=== PATIENT | female | born 1955 | race Caucasian/White ===

== ENCOUNTER → 2018-05-09 | Outpatient (CLI) | payer BC, OTHER ==
[~2018-05-09] MED LIST: ACIDOPHILUS1 EAC4 PO; AUGMENTIN 875-1 EACH PO; B-12500 MCG PO; ENOXAPARIN40 MG/0.1 SUBQ; HYDRALAZINE 5050 MG PO; IRON325 PO; LANCETS; LEVEMIR SUBQ; LOTENSIN20 MG PO; MIRALAX17 GM PO; NORVASC2.5 MG PO; NOVOLOG100 UNIT/1 SUBQ; PROTONIX 20 MG20 M1 PO; TYLENOL325 MG PO; ZOSYN 3/0.373.375 G3 IV; [UNRECOGNIZED DRUG - OTHER]
== END ==
LOC: HYPER 06:59
DX: L97.513 Non-pressure chronic ulcer of other part of right foot with necrosis of muscle (principal); I96 Gangrene, not elsewhere classified; I10 Essential (primary) hypertension; Z87.891 Personal history of nicotine dependence

== ENCOUNTER 2018-05-14 16:29 | Inpatient (IN) | payer BC, OTHER ==
[~2018-05-14] VITALS: Ht 175.3 cm; Wt 75.7 kg
--- NOTE | ~2018-05-14 | H ---
[facility] [place] [address] HISTORY AND PHYSICAL Name: FLOR VAUGHN Room #: 510-P ADM IN M.R.#: [id number] Admission: 05/14/18 Attend Phys: Eh Cruz MD Discharge: Date of : 55 Report #: [id number] THIS REPORT FOR: //name// CC: Eh Cruz [facility] unknown DATE OF SERVICE: 05/15/2018 HISTORY AND PHYSICAL/POSTADMISSION PHYSICIAN EVALUATION: HISTORY OF PRESENT ILLNESS: The patient is a 62-year-old white female with a history of right toe gangrene, right foot osteomyelitis, new onset diabetes mellitus, diabetic peripheral neuropathy. She was admitted and underwent a right foot transmetatarsal amputation 05/11/[address] Solitario. She was limited to nonweightbearing on the right lower extremity. She was noted to have significant functional mobility and ADL deficits and was admitted for acute in-hospital inpatient rehabilitation. PAST MEDICAL HISTORY: Includes hypertension, new onset diabetes mellitus and peripheral neuropathy. She is a past smoker. ALLERGIES: No known drug allergies. HABITS: Tobacco abuse, quit 15 years ago. Alcohol use only on special occasions. MEDICATIONS: Please see the full medication listing. This includes vitamins, herbals, and minerals and supplements. PAST SURGICAL HISTORY: Tonsillectomy. SOCIAL HISTORY: Lives in a house with her , two steps in. She did not utilize gait aids or used a cane. She noted she plans on going to her sister's house where there is one step. Her sister is there and is caring for the sister's who has some medical problems himself. REVIEW OF SYSTEMS: No current complaints of chest pain, shortness of breath, abdominal discomfort. She has some right lower extremity discomfort as expected. PHYSICAL EXAMINATION: GENERAL: Pleasant 62-year-old white female in no obvious distress. The patient is alert, pleasant, oriented. VITAL SIGNS: Last recorded temperature 99, pulse 105, respirations 20 and blood pressure 142/65. HEENT: Appeared to be benign. [address] [address] HISTORY AND PHYSICAL Name: FLOR VAUGHN Room #: [address] [place] [address] IN M.R.#: [id number] Admission: 05/14/18 Attend Phys: Eh Cruz MD Discharge: Date of : 55 Report #: [id number] NEUROLOGIC: Cranial nerves are grossly intact. Facies are symmetric. She has breath sounds that appear clear. CARDIOVASCULAR: Regular rate and rhythm. ABDOMEN: Bowel sounds positive, nontender. GENITOURINARY AND RECTAL: Deferred. NEUROLOGICAL: Functional range of motion of both upper extremities with strength grade 4- to 4/5. DTRs are trace to 1. Lower extremities, she has the right transmetatarsal amputation, which is dressed. No calf swelling. She can move the right leg proximally. Lower extremity is grade 4-/5. She has some slight decreased proprioception of the left large toe. No calf swelling. Strength of left lower extremity is a grade 4-/5. She is min assist with sit to stand. She is nonweightbearing on the right lower extremity. IMPRESSION: This is a 62-year-old white female with the following problem list: 1. Right foot osteomyelitis, status post right transmetatarsal amputation on 05/11/2018, nonweightbearing. 2. New onset diabetes mellitus. 3. Peripheral neuropathy. 4. Hypertension. 5. Protein-calorie malnutrition, moderate. PLAN: The patient is admitted for acute in-hospital inpatient rehabilitation. From a postadmission physician evaluation perspective, there are no relevant changes since the preadmission screening. Please see the above review of prior and current medical and functional conditions and comorbidities. Please see the patient's previous and current functional status. As far as risk of complication, she has the multiple medical comorbidities as noted above. Initial plan of care involves the interdisciplinary acute inpatient rehabilitation program with the goal of maximizing the patient's functional independence, so she can hopefully return back to her prior living situation. Measurable functional goals would be for the patient to become modified independent with transfers, mobility and ADLs, so she can return back to the home setting. Prognosis is reasonably good with estimated length of stay probably at least 10 days to 2 weeks. Potential barriers would include the patient's multiple medical comorbidities and decreased functional status. We will have the wound care physician's continue to follow while the patient is on the rehab polanco. Infectious Disease has also been notified regarding the patient's rehabilitation admission as well as the hospitalist service. <ELECTRONICALLY SIGNED> By: Eh Cruz MD 05/17/18 1116 [id number] [id number] Eh Cruz MD /nt
--- NOTE | ~2018-05-14 | HC ---
[facility] [place] [place] [address] CONSULTATION Name: FLOR VAUGHN Room #: 510-P [facility] IN M.R.#: [id number] Admission: 05/14/18 Attend Phys: Eh Cruz MD Discharge: 05/27/18 Date of : 55 Report #: [id number] THIS REPORT FOR: //name// CC: Eh Cruz MD [facility] unknown DATE OF SERVICE: 05/15/2018 PERSONAL PHYSICIAN: Unknown. CHIEF COMPLAINT: Right foot transmetatarsal amputation wound. HISTORY OF PRESENT ILLNESS: This is a 62-year-old white female who last week presented to our office with a wet gangrene to the right second and fifth toe. It was found on MRI that there was osteomyelitis involving the second, third, fourth and fifth metatarsals and the patient subsequently underwent a right transmetatarsal amputation. The patient has been nonweightbearing on that extremity since that time. The patient has been otherwise doing well and was moved to the acute rehab unit of the hospital for further aggressive occupational and physical therapy. We have been asked to continue to follow the wound while she is here. PAST MEDICAL HISTORY: New onset hypertension, new onset diabetes mellitus and peripheral neuropathy. CURRENT MEDICATIONS: Multiple. I reviewed the patient's medication list. DRUG ALLERGIES: None. SOCIAL HISTORY: The patient has a remote history of tobacco use, quitting 15 years ago. Drinks alcohol rarely. FAMILY HISTORY: Not pertinent to current medical condition. REVIEW OF SYSTEMS: CONSTITUTIONAL: The patient denies fevers or chills. NEUROLOGIC: The patient complains of mild generalized weakness, but no isolated weakness in arms or legs. EYES: No complaints. ENT: No complaints. CARDIAC: The patient denies chest pain, palpitations. Has mild lower extremity edema. RESPIRATORY: The patient denies shortness of breath, cough or wheezes. GASTROINTESTINAL: The patient denies nausea, vomiting or abdominal pain. The patient states she is eating a high-protein rich diet. [facility] [address] [place] [address] CONSULTATION Name: FLOR VAUGHN Room #: 510-P [facility] IN ..#: [id number] Admission: 05/14/18 Attend Phys: Eh Cruz MD Discharge: 05/27/18 Date of : 55 Report #: [id number] GENITOURINARY: The patient denies urgency or frequency. MUSCULOSKELETAL: No complaints. SKIN: There is surgical wound on the right foot consistent with transmetatarsal amputation. Dressing is clean, dry and intact. PHYSICAL EXAMINATION: VITAL SIGNS: Temperature 36.4, pulse 84, respirations 29, BP 154/80. GENERAL: This is alert and oriented x 3, very pleasant white female who is in absolutely no distress. The patient is currently getting ready to start physical therapy. HEENT: Normocephalic, atraumatic. Mucous membranes are moist. Pupils are round. Sclerae are white. NECK: Supple, nontender. LUNGS: Clear. HEART: Regular, without murmur. ABDOMEN: Soft, nontender. EXTREMITIES: The patient moves all extremities without difficulty. Right transmetatarsal amputation site is dressed with a fresh dressing, which is clean, dry and intact. The patient has no pain with palpation of the dressing. There is trace edema to the right lower extremity. There is trace edema to the left lower extremity. Left heel, foot and toes are all intact. NEUROLOGIC: Cranial nerves 2-12 grossly intact. Motor and sensory grossly intact. LABORATORY VALUES: White count 11.1, hemoglobin 8.7. IMPRESSION: 1. Wet gangrene with underlying osteomyelitis of right forefoot, now status post transmetatarsal amputation. Overall, doing well. 2. Newly diagnosed diabetes mellitus. 3. Newly diagnosed hypertension. 4. Protein-calorie malnutrition, moderate, with an albumin 2.9. 5. Generalized debility. PLAN: The patient will continue with Aquacel Ag over the surgical incisions, covered with Xeroform, Kerlix and Krishna for compression. This will be changed 3 times weekly. The patient will utilize physical and occupational therapy for strengthening. We will continue to maximize the patient's oral protein consumption for healing. We will continue all other current medications. <ELECTRONICALLY SIGNED> By: Raheel Mckeon MD 06/04/18 1017 [id number] Raheel Mckeon MD /nt
--- NOTE | ~2018-05-14 | PLAN ---
[facility] [place] [address] REHAB UNIT PLAN OF CARE Name: FLOR VAUGHN Room #: 510-P [facility] IN M.R.#: [id number] Admission: 05/14/18 Attend Phys: Eh Cruz MD Discharge: 05/27/18 Date of : 55 Report #: [id number] THIS REPORT FOR: //name// CC: Eh Cruz [facility] unknown DATE OF SERVICE: 05/17/2018 PROGRESS NOTE/OVERALL PLAN OF CARE SUBJECTIVE: The patient is seen back today in followup. She is in no distress. Last recorded temperature 98.4, pulse 72, respirations 15, blood pressure 159/82. Transfers are min assist with gait min assist 24 feet in the parallel bars. She is nonweightbearing on the right lower extremity. Lower body dressing is mod assist, upper body dressing is setup. ASSESSMENT: 1. Right foot osteomyelitis, status post right transmetatarsal amputation on 05/11/2018, nonweightbearing. 2. New onset diabetes mellitus. 3. Peripheral neuropathy. 4. Hypertension. 5. Protein-calorie malnutrition, moderate. PLAN: The overall plan of care is based on the preadmission screen, post-admission physician evaluation and information garnered from therapy assessments. 1. Estimated length of stay probably 10 days to 2 weeks. 2. Medical prognosis is reasonably good. 3. Anticipated interventions include the interdisciplinary acute inpatient rehabilitation program. 4. Anticipated functional outcomes would be for the patient to become modified independent with basic mobility issues at a walker/wheelchair level. Nonweightbearing on the right lower extremity. 5. Discharge destination would be staying temporarily with her sister. 6. Expected therapy by discipline includes PT and OT 1-1/2 hours per day each 5 days a week throughout the duration of the acute inpatient rehabilitation stay. <ELECTRONICALLY SIGNED> By: Eh Cruz MD 05/28/18 1455 [id number] [id number] Eh Cruz MD /nt
--- NOTE | ~2018-05-14 | HC ---
[facility] [place] [address] CONSULTATION Name: FLOR VAUGHN Room #: 510-P [facility] IN M.R.#: [id number] Admission: 05/14/18 Attend Phys: Eh Cruz MD Discharge: 05/27/18 Date of : 55 Report #: [id number] THIS REPORT FOR: //name// CC: Eh Cruz [facility] unknown DATE OF SERVICE: 05/18/2018 ATTENDING PHYSICIAN: Eh Cruz MD [employer] SPECIALIST: Duane Garcia, PhD CLINICAL PRESENTATION: The patient is a 62-year-old female admitted to the rehabilitation unit at [facility] for comprehensive inpatient rehabilitation program to improve functional mobility and activities of daily living and self-care secondary to deficits from a right foot osteomyelitis and is status post right transmetatarsal amputation on 05/11/2018. She has been nonweightbearing. Her diagnoses include a new onset diabetes mellitus, peripheral neuropathy, hypertension and protein-calorie malnutrition. A complete description of her medical condition and history can be found in her medical record. Neuropsychological consultation was requested to provide assistance in the assessment of cognitive and emotional status and to provide recommendations and services. Prior to this most recent medical event, she was living independently in her own home. She is with one child. Patient is a high school graduate and primarily a homemaker throughout her life. She does not report a history of treatment for mood or behavior disorder. TECHNIQUES UTILIZED: Clinical interview, review of medical records, staff consultation and behavioral observation, mini mental status exam 2 standard version and clock drawing. EXAMINATION FINDINGS: The patient was alert and cooperative with the assessment. She accurately described events surrounding her admission. There is no evidence of aphasia. Her thoughts are logical and goal oriented. There is no evidence of thought disorder. She does not report difficulty with sleep, appetite or energy level. Memory and word finding are described as within normal limits. She does not report depression. However, she does indicate some anxiety in regard to the impact of her condition on family members. She also reports the desire to improve her overall level of health management and maintenance of diet given her current medical condition. Her performance on the MMSE-2 brief version is within normal limits with a raw score 16 of 16. Performance on the MMSE-2 standard version is within normal limits with a raw score of 30 of 30. Clock drawing is within normal limits. [address] [address] CONSULTATION Name: FLOR VAUGHN Room #: 510-P [facility] IN M.R.#: [id number] Admission: 05/14/18 Attend Phys: Eh Cruz MD Discharge: 05/27/18 Date of : 55 Report #: [id number] IMPRESSION: In general, neurocognitive functioning is within normal limits and well maintained. There may be a mild increase in anxiety in regard to the implications of her condition and need to more carefully manage her health care in general. RECOMMENDATIONS: Continued psychological services as needed. She is coping well to the extent of using this as an opportunity to improve her overall health care and that of other family members. I will continue to follow as needed for psychological support. Thank you very much for allowing me to provide the consultation on this patient. <ELECTRONICALLY SIGNED> By: Duane Garcia, PhD 06/01/18 1407 1515 [id number] Duane Garcia, PhD /nt
[~2018-05-14 16:29] MED LIST changes: -ACIDOPHILUS1 EAC4 PO; -AUGMENTIN 875-1 EACH PO; -B-12500 MCG PO; -HYDRALAZINE 5050 MG PO; -IRON325 PO; -LANCETS; -MIRALAX17 GM PO; -NOVOLOG100 UNIT/1 SUBQ; -PROTONIX 20 MG20 M1 PO; -[UNRECOGNIZED DRUG - OTHER]
[2018-05-14 20:40] VITALS: BP 142/65
[2018-05-15 04:27] LABS: CREATININE 1.4 mg/dL (0.6-1.0); POTASSIUM 3.5 mmol/L (3.5-5.1)
[2018-05-15 04:50] LABS: HEMATOCRIT 26.9 % (37.0-47.0); HEMOGLOBIN 8.7 gm/dL (12.0-15.0); MCH 26.5 pg (26.0-34.0); MCHC 32.4 g/dL (28.0-37.0); MCV 81.6 fL (80.0-100.0); RBC 3.3 mil/uL (4.20-5.00); RDW 14.4 % (10.5-14.5); WBC 11.1 thou/uL (4.0-11.0)
[2018-05-15 07:45] VITALS: BP 154/80
[2018-05-15 19:41] VITALS: BP 181/87
[2018-05-16 08:39] VITALS: BP 160/78
[2018-05-16 19:48] VITALS: BP 159/82
[2018-05-17 08:30] VITALS: BP 145/58
[2018-05-17 20:25] VITALS: BP 151/67
[2018-05-18 07:15] VITALS: BP 140/75
[2018-05-19 07:25] VITALS: BP 158/68
[2018-05-19 21:19] VITALS: BP 164/85
[2018-05-20 06:33] LABS: ABSOLUTE NEUTROPHILS 6.4 thou/uL (1.4-8.2); BASOPHILS 1.1 % (0.0-2.0); EOSINOPHILS 1.7 % (0.0-3.0); HEMOGLOBIN 8.9 gm/dL (12.0-15.0); LYMPHOCYTES 18.3 % (24.0-44.0); MCH 27.4 pg (26.0-34.0); MCHC 34.3 g/dL (28.0-37.0); MCV 79.9 fL (80.0-100.0); PLATELET COUNT 364 thou/uL (150-400); POLYS 73.9 % (36.0-66.0); RBC 3.25 mil/uL (4.20-5.00); RDW 14.8 % (10.5-14.5); WBC 8.6 thou/uL (4.0-11.0)
[2018-05-20 06:41] LABS: CALCIUM 9.4 mg/dL (8.5-10.1); CREATININE 1.4 mg/dL (0.6-1.0); MAGNESIUM 2.3 mg/dL (1.8-2.4); POTASSIUM 3.8 mmol/L (3.5-5.1)
[2018-05-20 08:30] VITALS: BP 149/92
[2018-05-20 19:23] VITALS: BP 154/89
[2018-05-21 08:00] VITALS: BP 140/78
[2018-05-21 19:21] VITALS: BP 168/88
[2018-05-22 05:52] LABS: HEMATOCRIT 26.6 % (37.0-47.0); HEMOGLOBIN 8.7 gm/dL (12.0-15.0); MCH 26.5 pg (26.0-34.0); MCHC 32.8 g/dL (28.0-37.0); MCV 80.7 fL (80.0-100.0); RBC 3.3 mil/uL (4.20-5.00); RDW 15.6 % (10.5-14.5); WBC 9.4 thou/uL (4.0-11.0)
[2018-05-22 06:06] LABS: CALCIUM 9.6 mg/dL (8.5-10.1); CREATININE 1.7 mg/dL (0.6-1.0); POTASSIUM 4.3 mmol/L (3.5-5.1)
[2018-05-22 08:00] VITALS: BP 163/80
[2018-05-22 20:22] VITALS: BP 160/84
[2018-05-23 11:51] LABS: CALCIUM 9.5 mg/dL (8.5-10.1); CREATININE 1.5 mg/dL (0.6-1.0); POTASSIUM 4.2 mmol/L (3.5-5.1)
[2018-05-23 20:20] VITALS: BP 109/59; BP 158/78
[2018-05-24 06:28] LABS: CALCIUM 9.6 mg/dL (8.5-10.1); CREATININE 1.3 mg/dL (0.6-1.0); POTASSIUM 3.9 mmol/L (3.5-5.1)
[2018-05-24 17:33] VITALS: BP 161/74
[2018-05-24 20:17] VITALS: BP 151/81
[2018-05-25 07:00] VITALS: BP 161/81
[2018-05-25 11:00] VITALS: BP 172/85
[2018-05-25 16:36] VITALS: BP 167/95
[2018-05-25 19:19] VITALS: BP 153/70
[2018-05-26 07:30] VITALS: BP 172/67
[2018-05-26 15:04] VITALS: BP 151/71
[2018-05-26 19:00] VITALS: BP 155/66
[2018-05-27 05:48] LABS: ABSOLUTE NEUTROPHILS 5.8 thou/uL (1.4-8.2); BASOPHILS 1.8 % (0.0-2.0); EOSINOPHILS 3.1 % (0.0-3.0); HEMATOCRIT 27.8 % (37.0-47.0); HEMOGLOBIN 9.4 gm/dL (12.0-15.0); LYMPHOCYTES 19.6 % (24.0-44.0); MCH 27.2 pg (26.0-34.0); MCHC 33.7 g/dL (28.0-37.0); MCV 80.7 fL (80.0-100.0); MONOCYTES 3.7 % (1.0-8.0); PLATELET COUNT 383 thou/uL (150-400); POLYS 71.8 % (36.0-66.0); RBC 3.44 mil/uL (4.20-5.00); RDW 15.9 % (10.5-14.5); WBC 8.1 thou/uL (4.0-11.0)
[2018-05-27 05:59] LABS: CALCIUM 9.5 mg/dL (8.5-10.1); CREATININE 1.4 mg/dL (0.6-1.0); MAGNESIUM 1.9 mg/dL (1.8-2.4); POTASSIUM 4.2 mmol/L (3.5-5.1)
[2018-05-27 07:05] VITALS: BP 136/80
[2018-05-27] MEDS ORDERED: LEVEMIR SUBQ (09:55)
[2018-05-27] MEDS ORDERED: [UNRECOGNIZED DRUG - OTHER] (09:55)
[2018-05-27] MEDS ORDERED: NORVASC2.5 MG PO (09:55)
[2018-05-27] MEDS ORDERED: LANCETS (09:55)
[2018-05-27] MEDS ORDERED: ACIDOPHILUS1 EAC4 PO (09:55)
[2018-05-27] MEDS ORDERED: IRON325 PO (09:55)
[2018-05-27] MEDS ORDERED: PROTONIX 20 MG20 M1 PO (09:55)
[2018-05-27] MEDS ORDERED: HYDRALAZINE 5050 MG PO (09:55)
[2018-05-27] MEDS ORDERED: MIRALAX17 GM PO (09:55)
[2018-05-27] MEDS ORDERED: NOVOLOG100 UNIT/1 SUBQ (09:55)
[2018-05-27] MEDS ORDERED: B-12500 MCG PO (09:55)
[2018-05-27] MEDS ORDERED: AUGMENTIN 875-1 EACH PO (11:24)
[2018-05-27 12:08] VITALS: BP 161/74
== END 2018-05-27 15:53 | disposition home health service (06) | DRG 300 ==
LOC: ENTRNSPT 05-27 15:23 → EDTRNSPTSTS 05-27 15:32 → CMPTRNSPT 05-27 15:50
PROVIDERS: Internal Medicine Infectious Disease; Nurse Practitioner; Nurse Practitioner Family; Physical Medicine & Rehabilitation
DX: E11.52 Type 2 diabetes mellitus with diabetic peripheral angiopathy with gangrene (principal); E44.0 Moderate protein-calorie malnutrition; M86.8X7 Other osteomyelitis, ankle and foot; L03.115 Cellulitis of right lower limb; N17.9 Acute kidney failure, unspecified; E11.69 Type 2 diabetes mellitus with other specified complication; I10 Essential (primary) hypertension; E11.42 Type 2 diabetes mellitus with diabetic polyneuropathy; R53.81 Other malaise; D64.9 Anemia, unspecified; E11.65 Type 2 diabetes mellitus with hyperglycemia; Z87.891 Personal history of nicotine dependence; Z68.24 Body mass index [BMI] 24.0-24.9, adult; Z79.4 Long term (current) use of insulin
CPT/HCPCS: 10112

== ENCOUNTER → 2018-06-05 | Outpatient (CLI) | payer BC, OTHER ==
[~2018-06-05] MED LIST changes: +ACIDOPHILUS1 EAC4 PO; +AUGMENTIN 875-1 EACH PO; +B-12500 MCG PO; +HYDRALAZINE 5050 MG PO; +IRON325 PO; +LANCETS; +MIRALAX17 GM PO; +NOVOLOG100 UNIT/1 SUBQ; +PROTONIX 20 MG20 M1 PO; +[UNRECOGNIZED DRUG - OTHER]
[2018-06-05 10:53] VITALS: BP 144/86
== END ==
LOC: SEN 09:04
DX: Z09 Encounter for follow-up examination after completed treatment for conditions other than malignant neoplasm (principal); E11.9 Type 2 diabetes mellitus without complications; I10 Essential (primary) hypertension; Z89.421 Acquired absence of other right toe(s)

== ENCOUNTER → 2018-06-06 | Outpatient (CLI) | payer BC, OTHER | LOC: HYPER 06-04 08:40 | DX: T87.89 Other complications of amputation stump (principal); L97.513 Non-pressure chronic ulcer of other part of right foot with necrosis of muscle; I73.9 Peripheral vascular disease, unspecified; M96.840 Postprocedural hematoma of a musculoskeletal structure following a musculoskeletal system procedure; I10 Essential (primary) hypertension; Z87.891 Personal history of nicotine dependence; Y83.5 Amputation of limb(s) as the cause of abnormal reaction of the patient, or of later complication, without mention of misadventure at the time of the procedure ==

== ENCOUNTER → 2018-06-20 | Outpatient (CLI) | payer BC, OTHER | LOC: HYPER 06:27 | DX: T87.89 Other complications of amputation stump (principal); L97.513 Non-pressure chronic ulcer of other part of right foot with necrosis of muscle; I73.9 Peripheral vascular disease, unspecified; I10 Essential (primary) hypertension; Z87.891 Personal history of nicotine dependence; Y83.5 Amputation of limb(s) as the cause of abnormal reaction of the patient, or of later complication, without mention of misadventure at the time of the procedure ==

== ENCOUNTER → 2018-07-04 | Outpatient (CLI) | payer BC, OTHER | LOC: HYPER 06:54 | DX: T87.89 Other complications of amputation stump (principal); L97.513 Non-pressure chronic ulcer of other part of right foot with necrosis of muscle; I73.9 Peripheral vascular disease, unspecified; I10 Essential (primary) hypertension; M96.840 Postprocedural hematoma of a musculoskeletal structure following a musculoskeletal system procedure; Z87.891 Personal history of nicotine dependence; Y83.5 Amputation of limb(s) as the cause of abnormal reaction of the patient, or of later complication, without mention of misadventure at the time of the procedure ==

== ENCOUNTER → 2018-08-05 | Outpatient (CLI) | payer BC, OTHER | LOC: HYPER 07:13 | DX: T87.89 Other complications of amputation stump (principal); L97.513 Non-pressure chronic ulcer of other part of right foot with necrosis of muscle; I73.9 Peripheral vascular disease, unspecified; I10 Essential (primary) hypertension; M96.840 Postprocedural hematoma of a musculoskeletal structure following a musculoskeletal system procedure; Z87.891 Personal history of nicotine dependence; Y83.5 Amputation of limb(s) as the cause of abnormal reaction of the patient, or of later complication, without mention of misadventure at the time of the procedure ==

== ENCOUNTER → 2018-12-12 | Outpatient (CLI) | payer BC, OTHER | LOC: HYPER 06:40 | DX: R21 Rash and other nonspecific skin eruption (principal); E11.51 Type 2 diabetes mellitus with diabetic peripheral angiopathy without gangrene; I10 Essential (primary) hypertension; Z87.891 Personal history of nicotine dependence ==

== ENCOUNTER 2019-01-24 10:54 | Inpatient (IN) | payer BC, OTHER ==
[~2019-01-24] VITALS: Ht 175.3 cm; Wt 64.4 kg
--- NOTE | ~2019-01-24 | HC ---
[facility] [place] [address] CONSULTATION Name: FLOR VAUGHN Room #: 352-P [facility] IN M.R.#: [id number] Admission: 01/24/19 ������������������ Attend Phys: Saud Monterroso Discharge: ������������������ Date of : 55 Report #: [id number] THIS REPORT FOR: //name// CC: Tony Monterroso DATE OF SERVICE: 01/28/2019 HISTORY OF PRESENT ILLNESS: The patient is a 63-year-old white female who was admitted with worsening weakness, urologic issues with urinary retention and inability to void. She was having difficulty trying to straight cath herself. She was admitted with acute renal insufficiency superimposed on chronic kidney disease, was noted to have obstructive uropathy with Leach catheter placed. She was also diagnosed with metabolic acidosis and metabolic encephalopathy along with gram-negative angeline sepsis. She does have a stage 3 sacral pressure ulcer with wound care involved as well as a deep tissue injury, left posterior heel, although she is allowed weightbearing as tolerated on that left heel as it is not over the weightbearing surface per se. She is being followed by Nephrology with her acute renal insufficiency superimposed on chronic kidney disease. She has cognitive issues and is severely debilitated and is being seen in rehabilitation medicine consultation. PAST MEDICAL HISTORY: Includes osteomyelitis, right foot with prior transmetatarsal amputation. She has a history of hypertension MEDICATIONS: Please see the full medication listing. SOCIAL HISTORY: She has been staying with her sister, 2 steps in. She uses a walker/wheelchair. She notes there are 8 steps total, 4+ another 4 steps. Her is in the area, but he has more steps in his house and so she has been staying with the sister. REVIEW OF SYSTEMS: No current complaints of chest pain, shortness of breath, or abdominal discomfort. PHYSICAL EXAMINATION: GENERAL: This is a 63-year-old white female in no obvious distress. The patient is alert, pleasant. VITAL SIGNS: Last recorded temperature is 98.4, pulse is 84, respirations 17, blood pressure is 139/58. HEENT: Appeared to be benign. NEUROLOGIC: Cranial nerves grossly intact. Facies are symmetric. She has functional range of motion of the upper extremity. Strength is grade 4-/5. DTRs are trace to 1. She does have some latency to her responses, needs cues, but can stay on topic. I did not examine the pressure ulcer on her sacrum. I did examine the deep tissue injury, which is dark bruise, left posterior heel. [facility] [address] [place] [address] CONSULTATION Name: FLOR VAUGHN Room #: 352-P [facility] IN ..#: [id number] Admission: 01/24/19 ������������������ Attend Phys: Saud Monterroso Discharge: ������������������ Date of : 55 Report #: [id number] It is not directly over the weightbearing surface. She has the old right transmetatarsal amputation. Lower extremity strength is probably a grade 3+/5. She does have bilateral heel protector boots on. She is mod assist with sit to stand and per report is allowed weightbearing as tolerated on that left heel. ASSESSMENT: The patient is a 63-year-old white female with the following problem list: 1. Metabolic encephalopathy. 2. Metabolic acidosis. 3. Gram-negative angeline sepsis. 4. Acute renal insufficiency superimposed on chronic kidney disease. 5. Obstructive uropathy warranting Leach catheter placement. 6. Stage 3 sacral pressure ulcer. 7. Left heel deep tissue injury. 8. Hypertension. 9. Diabetes mellitus. 10. Peripheral neuropathy. PLAN: Insurance will be checked regarding an acute in-hospital inpatient rehabilitation stay. The patient has multiple medical comorbidities warranting the involvement of multiple technical sales consultant physicians and would appear to be best served by having her management to continue on the rehab polanco with the multiple technical sales consultant physicians can continue to follow, so that we can try to improve her overall function and get her back home. Wound care is involved as well as Nephrology and Internal Medicine. She does appear motivated to try to improve her overall functional independence. Thank you for asking us to assist in this patient's care. ��������������������������������������������� ���������������������������������������� By: ��������������������������������������������� 1525 0510 Eh Cruz MD /DERRICK
[2019-01-24 10:55] VITALS: BP 154/125
[2019-01-24 11:46] LABS: HEMATOCRIT 24.8 % (37.0-47.0); HEMOGLOBIN 8.6 gm/dL (12.0-15.0); MCH 29.5 pg (26.0-34.0); MCHC 34.5 g/dL (28.0-37.0); MCV 85.5 fL (80.0-100.0); PLATELET COUNT 120 thou/uL (150-400); WBC 25.3 thou/uL (4.0-11.0)
[2019-01-24 12:07] LABS: ALBUMIN 1.9 g/dL (3.4-5.0); ANION GAP 19 mmol/L (7-16); BUN 149 mg/dL (7-18); CALCIUM 9.6 mg/dL (8.5-10.1); CHLORIDE 93 mmol/L (98-107); CREATININE 3.8 mg/dL (0.6-1.0); GLUCOSE 246 mg/dL (74-106); POTASSIUM 3.1 mmol/L (3.5-5.1); SGOT 41 U/L (15-37); SGPT 93 U/L (30-65); SODIUM 123 mmol/L (136-145); TOTAL BILIRUBIN 0.7 mg/dL (<0.1-1.0); TOTAL PROTEIN 6.3 g/dL (6.4-8.2); TROPONIN-I <0.06 ng/mL (<0.06)
[2019-01-24 12:15] LABS: CO2 11 mmol/L (21-32)
[2019-01-24 13:06] LABS: ANISOCYTOSIS SLIGHT; POIKILOCYTOSIS SLIGHT
[2019-01-24 13:07] LABS: BURR CELLS FEW; LARGE PLATELETS OCCASIONAL; TOXIC GRANULATION SLIGHT
[2019-01-24 13:21] LABS: URINE BILIRUBIN NEGATIVE (Negative); URINE BLOOD TRACE (Negative); URINE CLARITY CLEAR; URINE COLOR YELLOW; URINE GLUCOSE-RANDOM* NEGATIVE (Negative); URINE KETONES NEGATIVE (Negative); URINE NITRITE-REFLEX NEGATIVE (Negative); URINE PROTEIN (DIPSTICK) 1+ (Negative); URINE SPECIFIC GRAVITY <= 1.005 (1.005-1.035); URINE UROBILINOGEN 0.2 E.U./dl (0.2-1.0)
[2019-01-24 13:27] LABS: URINE LEUKOCYTES-REFLEX 1+ (Negative)
[2019-01-24 13:36] LABS: SQUAMOUS 0-3 Few /LPF (0-3); URINE RBC 0-2 Rare /HPF (0-2); URINE WBC-REFLEX 6-15 Few /HPF (0-5)
[2019-01-24 13:37] LABS: CASTS None Seen /LPF (None Seen); CRYSTALS None Seen /LPF (None Seen)
[2019-01-24 13:42] LABS: BE(vivo) -17.8 mmol/L (-2 to +3); PCO2 VENOUS 24.9 mmHg (41.0-51.0); PO2 VENOUS 32.3 mmHg (35.0-45.0)
[2019-01-24 14:44] VITALS: BP 100/66
[2019-01-24 14:58] VITALS: BP 101/56
[2019-01-24 15:29] VITALS: BP 120/86
--- NOTE | 2019-01-24 15:57 | EKG ---
[address] [address] ELECTROCARDIOGRAM REPORT Name: FLOR VAUGHN Room #: 352-P ADM IN M.R.#: [id number] ������������������ Admission: 01/24/19 ������������������ Attend Phys: Micheal Fountain MD Discharge: ������������������ Date of : 55 Report #: [id number] ����������������������������������������������������������������� [id number] THIS REPORT FOR: //name// [facility] ED Test Date: 2019-01-24 Test Time: 11:18:31 Pat Name: FLOR VAUGHN Department: Room: [facility] Gender: F Daycare Provider: FLAVIO : 1955 Requested By: Rosangela Hawkins Order Number: [id number] MD: Tray Shirley Measurements Intervals [place] Rate: 91 P: 71 MN: 188 QRS: 62 QRSD: 95 T: 56 QT: 370 QTc: 456 Interpretive Statements Sinus rhythm Atrial premature complex Probable left atrial enlargement Compared to ECG 05/09/2018 13:39:26 Atrial premature complex(es) now present Electronically Signed On 01-24-2019 15:57:20 CDT by Tray Shirley [email or web address] ��������������������������������������������� <ELECTRONICALLY SIGNED> ���������������������������������������� By: Tray Shirley MD ��������������������������������������������� 01/24/19 1557 17 Tray Shirley MD /BARBER
--- NOTE | 2019-01-24 18:50 | NUR ---
[age] YEAR OLD FEMALE ADMITTED TO WEST ROOM 352 UNDER THE CARE OF DR. FINN. PT WAS BROUGHT INTO THE ER PER SON AFTER PCP CALLED PT TO COME TO ER DUE TO ABNORMAL LABS. PT ALERT AND ORIENTED TIMES TWO. VSS, 100%RA, SR ON TELE. IVF INFUSING PER ORDER. PT DENEIS PAIN/SOA. PT TOLERATES MEDS AND MEALS. WOUND ON COCCYX DRESSING AND ALSO SEEN BY WOUND CARE TEAM. PT SON AT BEDSIDE. PT SIGNED PAPER WORK ABOUT MT ON ADMISSION.
[2019-01-24 19:36] VITALS: BP 101/57
--- NOTE | 2019-01-25 00:53 | NUR ---
RESULTS FROM BLOOD CULTURES RECEIVED. POSITIVE FOR GRAM POSITIVE RODS, FOLLOWED PROTOCOL AND CALLED CERTIFIED JUVENILE PROBATION OFFICER INFORM. TOLD TO FOLLOW POC.
[2019-01-25 04:40] VITALS: BP 106/63
[2019-01-25 05:35] LABS: HEMATOCRIT 20.4 % (37.0-47.0); MCH 29.3 pg (26.0-34.0); MCHC 34.1 g/dL (28.0-37.0); MCV 85.7 fL (80.0-100.0); PLATELET COUNT 116 thou/uL (150-400); RBC 2.38 mil/uL (4.20-5.00); RDW 13.9 % (10.5-14.5); WBC 26.9 thou/uL (4.0-11.0)
[2019-01-25 05:52] LABS: ALBUMIN 1.4 g/dL (3.4-5.0); CALCIUM 8.8 mg/dL (8.5-10.1); CREATININE 3.8 mg/dL (0.6-1.0); MAGNESIUM 1.6 mg/dL (1.8-2.4); PHOSPHORUS 2.8 mg/dL (2.5-4.9)
[2019-01-25 05:54] LABS: POTASSIUM 4.9 mmol/L (3.5-5.1)
[2019-01-25 08:11] VITALS: BP 108/65
[2019-01-25 08:12] LABS: ABSOLUTE NEUTROPHILS 26.6 thou/uL (1.4-8.2)
[2019-01-25 08:13] LABS: BURR CELLS 3+
[2019-01-25 11:01] VITALS: BP 103/58
[2019-01-25 16:04] VITALS: BP 120/70
--- NOTE | 2019-01-25 18:29 | NUR ---
ASSUMED CARE @ 0700 01/25/19, PT ASSESSMENTS AND VS COMPLETE PER CC TELE ORDERS. PT ALERT AND ORIENTED X 3, DISORIENTED TO SITUATION. PT ABLE TO FOLLOW COMMANDS BUT HAS EPISODES OF CONFUSION. PT ON RA, NO SIGNS OF SOA. PT SR ON THE MONITOR. PT ON A DIET, ACHS ACCUCHECKS AND SSI IN PLACE AT THIS TIME, PT HAS TWO BM EPISODES, PT WAS ABLE TO EAT MEALS APPROPRIATELY. ARGUETA IN PLACE, GOP NOTED PER PT'S SIZE. DR ZEPEDA HERE DURING SHIFT TO SEE, NEW ORDERS RECIEVED. PT AND OT HERE TO SEE DURING THE SHIFT. PLAN OF CARE- CONT TO MONITOR.
[2019-01-25 19:30] VITALS: BP 133/75
[2019-01-26 03:35] VITALS: BP 129/70
[2019-01-26 05:41] LABS: WBC 21.5 thou/uL (4.0-11.0)
--- NOTE | 2019-01-26 05:41 | NUR ---
[facility] LAB CAME BACK NEGATIVE AND REMOVED PT FROM ISOLATION. FOLLOWING POC WITH IVF BICARB. PT WAS Q2 TURNED AND HAS LOW LOSS AIR PUMP INSTALLED FOR LOW PATRIC SCORE. PT IS A LITTLE MORE ALERT, WITH BOUTS OF CONFUSION WHEN ASKING PINPOINTED QUESTIONS ABOUT WHERE HER SON WORKS, AND SUCH. HOURLY ROUNDING.
[2019-01-26 05:45] LABS: HEMOGLOBIN 6.8 gm/dL (12.0-15.0); MCH 29.4 pg (26.0-34.0); MCHC 34.4 g/dL (28.0-37.0); MCV 85.3 fL (80.0-100.0); RBC 2.31 mil/uL (4.20-5.00); RDW 14.4 % (10.5-14.5)
[2019-01-26 05:51] LABS: HEMATOCRIT 19.7 % (37.0-47.0)
[2019-01-26 06:08] LABS: ALBUMIN 1.3 g/dL (3.4-5.0); CALCIUM 8.4 mg/dL (8.5-10.1); PHOSPHORUS 2.2 mg/dL (2.5-4.9); POTASSIUM 5.4 mmol/L (3.5-5.1)
[2019-01-26 07:16] VITALS: BP 128/70
[2019-01-26 11:44] VITALS: BP 143/76
--- NOTE | 2019-01-26 15:20 | NUR ---
ASSUMED CARE OF PT AT 0700. PT HAS BEEN AWAKE AND ALERT. PT IS A&Ox4 WITH SOME MILD CONFUSION AND FORGETFULNESS. PT IS INCONTINENT OF BOWEL, HAS HAD MULTIPLE BM'S TODAY. PROVIDED WITH Q2H TURNS FOR COMFORT AND PRESSURE RELIEF. PT DENIES PAIN AND SAYS SHE IS FEELING BETTER. BG HAS BEEN ELEVATED UP INTO 300s, TREATING PER EMAR. ENCOURAGING INTAKE OF PROTEIN RICH FOODS. PT IS MAKING SLOW PROGRESS TOWARD POC GOALS. WILL CONTINUE TO MONITOR AND ASSESS.
[2019-01-26 15:59] VITALS: BP 152/87
[2019-01-26 19:20] VITALS: BP 141/76
[2019-01-27] VITALS (8 sets, daily range): BP systolic 125–160; BP diastolic 69–82
--- NOTE | 2019-01-27 04:23 | NUR ---
Patient making slow progress towards outcome goals. Incontinent of soft stools, hemorrhoids inflammed, some relief after preparation H started. Vital signs and rhythm stable. Good urine output.
[2019-01-27 05:43] LABS: MCH 28.9 pg (26.0-34.0); MCHC 34.4 g/dL (28.0-37.0); MCV 84.1 fL (80.0-100.0); RBC 2.12 mil/uL (4.20-5.00); RDW 14.1 % (10.5-14.5); WBC 15.9 thou/uL (4.0-11.0)
[2019-01-27 05:55] LABS: HEMATOCRIT 17.9 % (37.0-47.0); HEMOGLOBIN 6.2 gm/dL (12.0-15.0)
[2019-01-27 05:57] LABS: ALBUMIN 1.1 g/dL (3.4-5.0); CALCIUM 7.6 mg/dL (8.5-10.1); PHOSPHORUS 2.6 mg/dL (2.5-4.9); POTASSIUM 5.1 mmol/L (3.5-5.1)
--- NOTE | 2019-01-27 06:31 | NUR ---
Hemoglobin 6.2, no active signs of bleeding. Orders received from Carlos Moreland NP to transfuse 1 unit PRBC.
[2019-01-27 10:16] LABS: % SATURATION 24 % (20-39); IRON 25 ug/dL (50-170); TIBC 104 ug/dL (250-450)
--- NOTE | 2019-01-27 11:38 | NUR ---
Assumed care of patient at 0700. Vitals have been stable. Patient is alert and oriented x3-4 with periods of forgetfulness. Denies pain, nausea, SOA. Still with multiple loose BMs throughout day, but smaller in volume. Frequent turning and barrier cream applied to sacrum; redness seems to be improving compared to previous day. Patient reports feels less sensitive to sacrum, as well. Leach to DD with adequate output. Bilateral SCDs in place; profo boots to offload heels. Wound care completed per orders. One unit of blood ordered for low hemoglobin. Currently transfusing with no issues noted. Visitors at bedside. Fall precautions in place. Slowly progressing towards POC. Will continue to monitor.
--- NOTE | 2019-01-27 16:22 | HC ---
[facility] [place] [address] CONSULTATION Name: FLOR VAUGHN Room #: 352-P ADM IN .R.#: [id number] Admission: 01/24/19 ������������������ Attend Phys: Micheal Fountain MD Discharge: ������������������ Date of : 55 Report #: [id number] THIS REPORT FOR: //name// CC: Tony Fountain DATE OF SERVICE: 01/24/2019 CHIEF COMPLAINT: Sacral ulcer and left heel pressure injury. HISTORY OF PRESENT ILLNESS: This is a 63-year-old female patient whom we have seen in the past who was admitted to the hospital with abnormal labs and generalized weakness. The patient was noted to have a sacral pressure ulcer and deep tissue injury to her heel. I have been asked to see her with regard to wound care. PAST MEDICAL HISTORY: Positive for history of heart murmur, hypertension, and previous osteomyelitis of the right foot. SOCIAL HISTORY: The patient is a previous smoker and occasionally drinks alcohol. FAMILY HISTORY: Positive for coronary artery disease in her father and cerebrovascular accident in her brother. MEDICATIONS: Include Tylenol, iron, hydralazine, acidophilus, MiraLax, NovoLog, vitamin B12, Norvasc and Augmentin. ALLERGIES: None. REVIEW OF SYSTEMS: Very limited due to the fact that the patient has limited ability to communicate at this time. She does complain of some pain in her sacral region and complains of generalized weakness. Other systems in a 14-point review of systems other than that covered in history of present illness are negative. PHYSICAL EXAMINATION: VITAL SIGNS: At this time include temperature 36.0, pulse 86, respiratory rate 18, blood pressure 120/86. GENERAL: This is a somewhat chronically ill-appearing female patient who appears to be in minimal discomfort. HEENT: Head normocephalic. Nose and throat are clear. NECK: Supple. LUNGS: Clear. HEART: Regular rhythm. [facility] [address] [place] [address] CONSULTATION Name: FLOR VAUGHN Room #: 352-P [facility] IN [facility].#: [id number] Admission: 01/24/19 ������������������ Attend Phys: Micheal Fountain MD Discharge: ������������������ Date of : 55 Report #: [id number] ABDOMEN: Soft and nontender. Sacral region demonstrates a Stage 3 pressure ulceration of the sacrum. It is relatively small, clean, and granulating. No exposed deep structures. LOWER EXTREMITIES: Demonstrate deep tissue injury that appears significant to the posterior portion of the left heel: Skin remains intact, but it is bruised. This may progress to further tissue necrosis. LABORATORY DATA: Sodium is 123, potassium 3.1, chloride 93, BUN 149, creatinine 3.8, and glucose is 246. Lactic acid is 0.9. Alkaline phosphatase is 398. White blood cell count 25.2 with a hemoglobin of 8.6, and hematocrit of 24.8. CLINICAL IMPRESSION: 1. Stage 3 sacral pressure ulceration. 2. Deep tissue injury to the left heel. I am concerned for progression to further tissue loss. 3. Metabolic acidosis and encephalopathy. 4. Acute on chronic renal failure. 5. Diabetes, uncontrolled with hyperglycemia. 6. Hypertension. 7. Moderate protein-calorie malnutrition. RECOMMENDATIONS: At this point in time, we will recommend zinc oxide cream and bordered foam to her sacrum. Recommend Betadine paint to her left heel. We will place her on a low air loss surface. She will need turning and repositioning every 2 hours. Nutrition assessment and replenishment will be essential to wound healing and management of the glycemic control. We will continue with her current medications. I appreciate being asked to see her in consultation. ��������������������������������������������� <ELECTRONICALLY SIGNED> ���������������������������������������� By: Ian Owusu MD ��������������������������������������������� 01/27/19 1622 1621 1110 Ian Owusu MD /nt
[2019-01-28 03:30] VITALS: BP 134/71
--- NOTE | 2019-01-28 04:38 | NUR ---
PAtient making slow progress towards outcomr goals. Vital signs and rhythm stable. IVFluids infusing. No active signs of bleeding. CBC pending. Incontinent of stools. High fall risks, fall precautions in place. Forgetful at times.
[2019-01-28 05:30] LABS: ALBUMIN 1.3 g/dL (3.4-5.0); CALCIUM 7.5 mg/dL (8.5-10.1); CREATININE 4.1 mg/dL (0.6-1.0); PHOSPHORUS 3.5 mg/dL (2.5-4.9); POTASSIUM 4.6 mmol/L (3.5-5.1)
[2019-01-28 05:43] LABS: HEMATOCRIT 21.3 % (37.0-47.0); HEMOGLOBIN 7.4 gm/dL (12.0-15.0); MCH 29.3 pg (26.0-34.0); MCHC 34.9 g/dL (28.0-37.0); MCV 83.9 fL (80.0-100.0); RBC 2.53 mil/uL (4.20-5.00); RDW 14.4 % (10.5-14.5); WBC 14.7 thou/uL (4.0-11.0)
[2019-01-28 07:24] VITALS: BP 134/76
[2019-01-28] MEDS ORDERED: SODIUM BICARBO650 M3 PO (09:26)
[2019-01-28] MEDS ORDERED: CEFUROXIME500 MG PO (09:31)
--- NOTE | 2019-01-28 10:21 | NUR ---
ASSUMED CARE OF PT AT 0700. PT IS A&Ox4 WITH SOME CONFUSION AND FORGETFULNESS AT TIMES. PT'S VITAL SIGNS ARE STABLE. PT HAS BEEN CONCERNED WITH A "PROCEDURE" SHE WAS TOLD SHE IS TO HAVE TODAY ON HER "KIDNEYS/BLADDER" BUT HAVE REASSURED HER THAT THERE ARE NO PENDING ORDERS. DR. VEGAS SPOKE WITH PT ABOUT DC'ING HOME WITH HOME HEALTH IN ORDER TO KEEP ARGUETA IN PLACE. PT'S BLOOD GLUCOSE NUMBERS HAVE CONTINUE TO STABLIZE. 119 AT AM CHECK. US OF LLE HAS BEEN ORDERED. SPOKE WITH PT ABOUT GOALS FOR THE DAY AND HAVE AGREED THAT TRYING TO SIT UP IN THE CHAIR TODAY IS APPROPRIATE. REASSURED PT THAT NEEDED TRANSFER WILL BE SAFE FOR HER AND STAFF. PT IS MAKING PROGRESS TOWARD POC AND DC GOALS. WILL CONTINUE TO MONITOR AND ASSESS.
--- NOTE | 2019-01-28 10:46 | NUR ---
INITIAL ASSESSMENT: Received consult for discharge planning. ALVARO reviewed chart and spoke with nursing and attending physician. Pt was admitted from home due to abnormal labs in her PCP's office last Sunday, 01/22. Pt with hx of DM, HTN, CKD and right foot osteomyelitis. Pt has had partial right foot amputation. Pt has discharge orders to go home with HH today. Pt was able to sit on edge of bed with OT. ALVARO met with pt at bedside. Introduced role of ALVARO. Pt is alert/orientated x 4. Pt reports she is currently staying with her sister, due to her having a one-level home. Pt normally lives with her , but their home has multiple stairs. Pt has a cane and walker to assist with ambulation. Pt has used [facility] in the past for HH and has been doing outpatient therapy at [facility]. Pt has been to [facility] in the past. Pt states she does not feel strong enough to go home today. Pt requests [facility] consult and is agreeable to going to [facility] if insurance would authorize. ALVARO explained that HH would be set up if insurance denies rehab. Pt verbalized understanding. Options provided for HH agencies. Pt requests to use [facility] again. Pt's PCP is Dr. Arias. Patient Vendor Choice Form signed and placed on pt's chart. ALVARO discussed case with [facility] rehabilitation services counselor. Consult will be ordered if attending approves. ALVARO notified intake at [facility] of new referral and possible discharge home later today. ALVARO is following to assist as needed with dishcarge planning.
[2019-01-28 11:13] VITALS: BP 136/70
--- NOTE | 2019-01-28 11:52 | NUR ---
WOUND CONSULT; ROUNDING WITH DR YIP AND CHIDI ANDINO PILL MAKER. A COCCYX WOUND WAS IDENTIFIED, AND A LEFT HEEL WOUND. RECOMMEDNDATION; COCCYX; APPLY ZGUARD, COVER WIT A BOARDERED FOAM, CHANGE DAILY/PRN DISCUSSED WITH BENJAMIN
[2019-01-28 15:04] VITALS: BP 139/58
[2019-01-28 19:17] VITALS: BP 147/65
[2019-01-29 03:58] VITALS: BP 133/77
--- NOTE | 2019-01-29 04:22 | NUR ---
PATIENT IS PROGRESSING SLOWLY IN HER CARE PLAN. VITAL SIGNS STABLE WITH PATIENT HAVING NO COMPLAINTS OF PAIN OR NAUSEA. PATIENT REMAINED MOSTLY ORIENTED AND ABLE TO CALL APPROPRIATELY FOR REQUESTS AND PARTICIPATE IN CARE. PATIENT WAS UNWILLING TO TRY TO STAND AND PIVOT TO BEDSIDE COMMODE DUE TO FEAR AND ANXIETY. MULTIPLE BOUTS OF FECAL INCONTINENCE WHICH WAS CLEANED UP BY NURSING STAFF. PRN MEDICATION PROVIDED TO NO EFFECT FOR DIARRHEA. WOUND TO COCCYX CHANGED MULTIPLE TIMES DUE SOILAGE. FREQUENT TURNS WITH BARRIER CREAM APPLICATION. PATIENT HAD LARGE AMOUNT OF OUTPUT THROUGH ARGUETA CATH. POSSIBLE DISCHARGE SOON. CONTINUE PLAN OF CARE.
[2019-01-29 05:45] LABS: ABSOLUTE NEUTROPHILS 12.2 thou/uL (1.4-8.2); BASOPHILS 0.1 % (0.0-2.0); EOSINOPHILS 0.4 % (0.0-3.0); HEMATOCRIT 21.2 % (37.0-47.0); HEMOGLOBIN 7.4 gm/dL (12.0-15.0); LYMPHOCYTES 5.9 % (24.0-44.0); MCH 29.5 pg (26.0-34.0); MCHC 34.7 g/dL (28.0-37.0); MONOCYTES 5.2 % (1.0-8.0); PLATELET COUNT 176 thou/uL (150-400); POLYS 88.4 % (36.0-66.0); RDW 14.4 % (10.5-14.5); WBC 13.8 thou/uL (4.0-11.0)
[2019-01-29 05:59] LABS: ALBUMIN 1.3 g/dL (3.4-5.0); CALCIUM 7.4 mg/dL (8.5-10.1); CREATININE 4.2 mg/dL (0.6-1.0); PHOSPHORUS 5.2 mg/dL (2.5-4.9); POTASSIUM 4.2 mmol/L (3.5-5.1)
[2019-01-29 07:26] VITALS: BP 132/72
--- NOTE | 2019-01-29 10:07 | NUR ---
Nutrition: assess d/t follow-up. Pt reports having a decent appetite that is slowly improving. She likes the Glucerna shakes. She was unsure of recent weight change but says her clothes seem slightly tighter. Changing nutrition risk to low with nutrition intervention in place.
[2019-01-29 11:27] VITALS: BP 136/73
--- NOTE | 2019-01-29 12:04 | NUR ---
ASSUMED CARE OF PT AT 0700. PT IS A&Ox4 WITH SOME FORGETFULNESS AND CONFUSION. PT HAS EXPRESSED A GREATER DESIRE TO WORK ON GETTING BETTER AND TO FOCUS ON THE MENTAL BLOCKS SHE KNOWS SHE HAS. PT HAS VOICED THAT HER GOAL FOR TODAY IS TO WORK ON STANDING MORE AND TO BE ABLE TO SIT UP IN THE CHAIR. HAVE SPOKEN WITH THE PT ABOUT THE NEED TO UTILIZE NON-PHARMACEUTICAL ANXIETY RELIEF. PT IS SR ON TELE. DENIES PAIN OTHER THAN OCCASIONAL BUTTOCK DISCOMFORT.
--- NOTE | 2019-01-29 14:44 | NUR ---
ALVARO reviewed chart and spoke with nursing and attending physician. Pt is medically stable for discharge. ALVARO discussed case with [facility] vocational rehabilitation consultant, who states she will submit for insurance authorization today. ALVARO met with pt at bedside to provide update. Pt is aware and agreeable with plan. ALVARO discussed SNF option if [facility] is not authorized. Pt does not want to consider SNF at this time. ALVARO updated intake at [facility]. ALVARO is following to assist as needed with discharge planning.
[2019-01-29 16:15] VITALS: BP 132/73
[2019-01-29 20:05] VITALS: BP 144/87
[2019-01-30 03:45] VITALS: BP 143/78
--- NOTE | 2019-01-30 05:08 | NUR ---
PATIENT IS PROGRESSING IN HER CARE PLAN. VITAL SIGNS STABLE WITH PATIENT HAVING NO COMPLAINTS OF PAIN OR NAUSEA. FULLY ORIENTED, PATIENT IS ABLE TO PARTICIPATE IN CARE AND CALL APPROPRIATELY FOR NEEDS. EARLY IN SHIFT PATIENT DID EXHIBIT A SLIGHTLY LOWER BLOOD SUGAR WHICH WAS TREATED EFFECTIVELY WITH FOOD AND JUICES. FOLLOW UP ACCU CHECK SHOWED PATIENT IN ACCEPTABLE RANGE. WOUND CARE PROVIDED PER DOCTOR ORDER WITH PATIENT FREQUENTLY REQUIRING COCCYX WOUND CHANGE DUE TO SOILAGE. PATIENT WAS TURNED FREQUENTLY WITH BARRIER CREAM APPLICATION TO PROTECT SKIN. MULTIPLE BOUTS OF FECAL INCONTINENCE CLEANED BY NURSING STAFF. PATIENT HAD LARGE AMOUNT OF URINE EMPTIED FROM ARGUETA CATHETER. POSSIBLE DISCHARGE TO REHAB SOON. CONTINUE PLAN OF CARE.
[2019-01-30 05:45] LABS: ALBUMIN 1.4 g/dL (3.4-5.0); CALCIUM 6.9 mg/dL (8.5-10.1); CREATININE 3.8 mg/dL (0.6-1.0); PHOSPHORUS 5.8 mg/dL (2.5-4.9); POTASSIUM 4.1 mmol/L (3.5-5.1)
[2019-01-30 07:54] VITALS: BP 125/74
[2019-01-30 11:44] VITALS: BP 128/63
--- NOTE | 2019-01-30 12:56 | NUR ---
ALVARO reviewed chart and spoke with nursing and attending physician. Pt is medically stable for discharge. ALVARO discussed case with [facility] rehab spec, who states they submitted for insurance auth late yesterday afternoon. ALVARO met with pt and sister at bedside to provide update. Both are aware and agreeable with discharge plan. ALVARO left voice message for pt's , Dileep, per pt's request to provide update. ALVARO is following to assist as needed with discharge planning.
--- NOTE | 2019-01-30 14:01 | NUR ---
WOUND CARE FOLLOW UP; WOUNDS LOOK CLINICALLY BETTER TODAY. NO S/S OF INFECTION. CONINUE CURRENT DRESSING CHANGE ORDERS. DISCUSSED WITH RN
[2019-01-30 16:03] VITALS: BP 140/85
--- NOTE | 2019-01-30 18:45 | NUR ---
Assumed care of pt at 0700. aox4 few loose stools - appears to be improving. max assist to chair. anticipate d/c to SNF pending insurance. pt progressing toward poc goals.
[2019-01-30 19:22] VITALS: BP 147/69
[2019-01-31 04:28] VITALS: BP 136/72
[2019-01-31 07:21] VITALS: BP 122/71
--- NOTE | 2019-01-31 07:39 | NUR ---
Pt. stated she slept well during the night. She has been repositioned for comfort. Able to help turn from side to side. Bed alarm on for safety.Immodium given at HS and had 2 soft bm this shift. protective barrier cream applied to sore buttom. Z guard and bordered foam to coccyx.Slowly making progress towards care plan goals.
[2019-01-31 11:44] VITALS: BP 132/79
--- NOTE | 2019-01-31 13:29 | NUR ---
ALVARO reviewed chart and spoke with nursing and attending physician. Pt is medically stable for discharge to post-acute. Awaiting input from pt's insurance regarding authorization for inpt acute rehab, which is pt's preference. ALVARO met with pt at bedside to provide update and discuss SNF options as a back up place. List reviewed with pt. Pt has chosen a few facilities, but wants to confirm with her and sister of a preference. ALVARO left voice message for pt's spouse to discuss SNF preference. Awaiting call back at this time and determination from insurance. ALVARO is following to assist as needed with discharge planning.
--- NOTE | 2019-01-31 14:12 | NUR ---
DISCHARGE PLANNING. POST ACUTE CARE RECOMMENDED AT DISCHARGE. [facility] REVIEWING PATIENT FOR REHAB STAY, PATIENTS FIRST CHOICE. REFERRAL ALSO FAXED TO [facility] PLAN B PER FAMILY REQUEST, SHOULD [facility] NOT BE AN OPTION AT DISCHARGE. CALL PLACED TO [facility], [facility] ADMISSIONS, TO NOTIFY OF REFERRAL. SPOKE WITH [facility] WHO STATES [facility] CAN ACCEPT PATIENT AT DISCHARGE. [facility] AWARE OF HOLDING OFF ON INSURANCE AUTH PROCESS UNTIL RESPONSE IS OBTAINED FROM [address] [place] [address] TO THEIR ACCEPTING OF PATIENT FOR REHAB STAY. UNIT CM/SW AWARE. FOLLOWING TO ASSIST WITH DISCHARGE.
[2019-01-31 15:25] VITALS: BP 103/67
--- NOTE | 2019-01-31 15:53 | NUR ---
WOUND CARE FOLLOW UP; ROUNDING WITH DR YIP AND CHIDI BOOM TRUCK DRIVER. THIS PATIENTS WOUNDS LOOK CLINICALLY BETTER TODAY. NO CHANGES AT THIS TIME. CONT. CURRENT ORDERS DISCUSSED WITH RN
--- NOTE | 2019-01-31 17:14 | NUR ---
ASSUMED PATIENT CARE AT 0700. A/O X4. ANXIOUS. LOOSE STOOL. VSS. DRESSING CHANGE PER ORDER. DC TO SNF NOW.
--- NOTE | 2019-02-02 10:47 | HC ---
[facility] [place] [address] CONSULTATION Name: FLOR VAUGHN Room #: 352-P [facility] IN M.R.#: [id number] Admission: 01/24/19 ������������������ Attend Phys: Saud Monterroso Discharge: 01/31/19 ������������������ Date of : 55 Report #: [id number] THIS REPORT FOR: //name// CC: Tony Fountain DATE OF SERVICE: 01/24/2019 REASON FOR CONSULTATION: Acute kidney injury and related problems. HISTORY OF PRESENT ILLNESS: This is a 63-year-old female who has been very debilitated. She recently has started to see one of my partners, Frederic Zuluaga MD, in our office for acutely rising creatinine level. That workup was very significant and that revealed bladder dysfunction. She had 1.5 liters of urine in her bladder. She had had some urinary tract infections associated with that. She was supposed to be at home doing some self-catheterizations. It sounds like she may be started that, but then did not continue that. At the end of December, she had a creatinine level of 2.39 and by 01/10/2019, it was down to 1.58, which was interpreted as an improvement. She presented today with profound weakness and her creatinine level is up to 3.8 with a BUN of 149. Looking back to late 2017, she ran a creatinine level as low as normal at 0.9, but then was up to 1.4 at the end of 05/2018. The patient tells me she has been very weak. Her appetite has been down. She has not been able to take much in the way of food or fluids. She says she is not doing a straight catheterizations and urination is at times very difficult. She is unaware of fevers, chills or sweats. It sounds like she has been inconsistent in taking her medications. She looks on exam like she has lost some weight, but she really cannot tell me how much or what is going on with that. Sugars have been highly variable. PAST MEDICAL HISTORY: Longstanding diabetes and hypertension. She also has previous diabetic nephropathy, although fairly well preserved creatinine previously. She had a right diabetic foot infection and had a transmetatarsal amputation done 05/2018. She has had the neurogenic bladder as noted above. MEDICATIONS: As listed in the office included omeprazole 20 mg daily, tamsulosin 0.4 mg daily, Trulicity, simvastatin 5 mg daily. ALLERGIES: No known medical allergies. Her medications as listed on admission to the hospital are actually somewhat different and include amlodipine 2.5 mg daily, hydralazine 50 mg t.i.d., some iron, MiraLax, and some other p.r.n. medications. PAST SURGICAL HISTORY: Includes transmetatarsal amputation as well as [facility] [address] [place] [address] CONSULTATION Name: FLOR VAUGHN Room #: 352-P DIS IN M.R.#: [id number] Admission: 01/24/19 ������������������ Attend Phys: Saud Monterroso Discharge: 01/31/19 ������������������ Date of : 55 Report #: [id number] tonsillectomy. FAMILY HISTORY: Noncontributory. SOCIAL HISTORY: The patient is listed as . She has a son accompanying her in the room at this time. They live in [place], [place]. She is a homemaker. REVIEW OF SYSTEMS: Basically positive as per the history of present illness. She has been very debilitated. She gets around in a wheelchair. She is spending more time in bed. She has had some soreness in her sacral area and buttocks. She is really unaware of much in the way of any urinary symptoms including dysuria. She is also fairly unaware of how much she has actually been able to void. She denies dyspnea or cough at this time. She has had decreased appetite. She is unaware of any chest pain or palpitations. She is unaware of fevers, chills or sweats. PHYSICAL EXAMINATION: GENERAL: Chronically ill-appearing female who has the appearance that she has lost a significant amount of weight. VITAL SIGNS: On original on arrival, she dropped to her blood pressure as low as 93/56. Most recently 120/86. Heart rate 86, temperature 97.2 degrees Fahrenheit and oxygen saturation of 100% with respiratory rate of 16. HEENT: Shows pupils are equal and reactive. Sclerae nonicteric. Oral mucosa is dry. Very poor dentition. NECK: Supple without adenopathy, thyromegaly, JVD or bruit. CHEST: Fairly clear bilaterally. BACK: Shows no CVA tenderness. HEART: Has a regular rate and rhythm. ABDOMEN: Has bowel sounds, which are present. She is nondistended. She is mildly tympanitic, which causes her some discomfort. At this point, a Leach catheter is in place and I cannot palpate nor percuss an enlarged urinary bladder. EXTREMITIES: She shows extensive muscle atrophy diffusely. The right transmetatarsal amputation looks to have healed well. She has absent pedal pulses. I reviewed her chest x-ray, which is entirely clear and well aerated. LABORATORY DATA: Sodium 123, potassium 3.1, chloride 93, bicarbonate 11, glucose 246, BUN 149, creatinine 3.8, AST 41, ALT 93, total bilirubin 0.7, calcium 9.6, magnesium 1.8, total protein 6.3, albumin 1.9, lactate was 0.9. White count 25.3, hemoglobin 8.6, hematocrit 24.8, platelets 120,000. Differential on the white count 82 neutrophils, 13 bands, 2 lymphs, 5 monos. Urinalysis, specific gravity less than 1.005, pH 6.0, 1+ protein, 1+ leukocytes, 6-15 white cells, 0-2 red cells, moderate bacteria. Blood gas venous drawn on [facility] [address] [place] [address] CONSULTATION Name: FLOR VAUGHN Room #: 352-P [facility] IN ..#: [id number] Admission: 01/24/19 ������������������ Attend Phys: Saud Monterroso Discharge: 01/31/19 ������������������ Date of : 55 Report #: [id number] admission pH 7.17, pCO2 of 24.9, pO2 of 32.3. ASSESSMENT: 1. Acute kidney injury. She has this recent history of diagnosis of neurogenic bladder and essentially obstructive uropathy. She has not been doing her straight caths. She was hypotensive on admission and appears volume deplete. She has had decreased intake of food and fluids. It looks like she might also have continued on some antihypertensive medications in addition, so that might have been contributing to her hypotension. She needs fluid, draining Leach catheter, and antibiotics and we will see how she responds. 2. Metabolic acidosis with increased anion gap. This will get better as her blood pressure and volume status improves. In the meantime, we will give her some additional sodium bicarbonate. 3. Hypokalemia. She will need extensive amounts of replacement. She has gotten some replacement, but as we correct her acidosis, she will shift more potassium intracellularly, so she will then fall further behind on potassium, so we will go ahead and booster doses now. 4. Hyponatremia. She has had very decreased intake of solute. She has had previous problems with hyponatremia. We are going to make sure she stays on isotonic IV fluid replacement and that should help correct. 5. Urinary tract infection. Again, she needs Leach drainage and broad spectrum antibiotics pending cultures. 6. Longstanding diabetes mellitus. 7. Longstanding hypertension, now hypotensive. We will hold all of her antihypertensive medications. 8. Prior transmetatarsal amputation. 9. Profound debility, probably will need some additional rehabilitation. PLAN: 1. We will change her IV fluids over to half normal saline with 75 of sodium bicarbonate to help correct the acidosis. We will keep her on the isotonic fluids. 2. Monitor intake and output. 3. Keep Leach catheter in place. 4. Change antibiotics once we confirm the identification and the sensitivity of the bacteria involved. 5. Repeat labs in the morning. 6. We will continue along in the care of this acutely and chronically ill patient. ��������������������������������������������� <ELECTRONICALLY SIGNED> ���������������������������������������� By: Owen Murray MD ��������������������������������������������� 02/02/19 1047 1756 24 Owen Murray MD /nt
== END 2019-01-31 17:14 | DRG 871 ==
LOC: ER 10:54 → EROBS 14:31 → 3W 14:31
PROVIDERS: Internal Medicine Nephrology; Nurse Practitioner; Physician Assistant; ADMIT Hospitalist
PROC: 30233N1 Transfusion of Nonautologous Red Blood Cells into Peripheral Vein, Percutaneous Approach (ICD-10-PCS; principal; 2019-01-27)
DX: A41.51 Sepsis due to Escherichia coli [E. coli] (principal); L89.153 Pressure ulcer of sacral region, stage 3; G93.41 Metabolic encephalopathy; N17.9 Acute kidney failure, unspecified; E87.2 Acidosis; N39.0 Urinary tract infection, site not specified; E87.1 Hypo-osmolality and hyponatremia; G93.40 Encephalopathy, unspecified; E44.0 Moderate protein-calorie malnutrition; N18.9 Chronic kidney disease, unspecified; E11.22 Type 2 diabetes mellitus with diabetic chronic kidney disease; E11.65 Type 2 diabetes mellitus with hyperglycemia; I12.9 Hypertensive chronic kidney disease with stage 1 through stage 4 chronic kidney disease, or unspecified chronic kidney disease; D64.9 Anemia, unspecified; E86.0 Dehydration; L89.629 Pressure ulcer of left heel, unspecified stage; E11.42 Type 2 diabetes mellitus with diabetic polyneuropathy; E87.8 Other disorders of electrolyte and fluid balance, not elsewhere classified; E87.6 Hypokalemia; N13.9 Obstructive and reflux uropathy, unspecified; Z68.21 Body mass index [BMI] 21.0-21.9, adult; Z89.431 Acquired absence of right foot; Z87.891 Personal history of nicotine dependence; Z79.4 Long term (current) use of insulin; Z79.899 Other long term (current) drug therapy; Z82.49 Family history of ischemic heart disease and other diseases of the circulatory system; Z82.3 Family history of stroke
CPT/HCPCS: 10879

== ENCOUNTER 2019-02-07 20:54 | Emergency (ER) | payer BC, OTHER ==
[~2019-02-07] VITALS: Ht 175.3 cm; Wt 64.9 kg
[~2019-02-07 20:54] MED LIST changes: +CEFUROXIME500 MG PO; +SODIUM BICARBO650 M3 PO
[2019-02-07 21:38] LABS: ABSOLUTE NEUTROPHILS 7.8 thou/uL (1.4-8.2); BASOPHILS 1.3 % (0.0-2.0); EOSINOPHILS 1.7 % (0.0-3.0); HEMATOCRIT 21.5 % (37.0-47.0); HEMOGLOBIN 7.3 gm/dL (12.0-15.0); LYMPHOCYTES 12.7 % (24.0-44.0); MCH 29.2 pg (26.0-34.0); MONOCYTES 4.8 % (1.0-8.0); PLATELET COUNT 344 thou/uL (150-400); POLYS 79.5 % (36.0-66.0); RDW 14.6 % (10.5-14.5); WBC 9.8 thou/uL (4.0-11.0)
[2019-02-07 21:47] LABS: CALCIUM 8.4 mg/dL (8.5-10.1); POTASSIUM 3.4 mmol/L (3.5-5.1)
[2019-02-07 21:52] LABS: ALBUMIN 2.2 g/dL (3.4-5.0); TOTAL BILIRUBIN 0.2 mg/dL (<0.1-1.0); TOTAL PROTEIN 6.1 g/dL (6.4-8.2)
[2019-02-07 21:53] LABS: APTT 28.5 Seconds (24.5-32.8); INR 1.1; PROTIME 11.4 Seconds (9.3-11.4)
[2019-02-08 00:07] VITALS: BP 127/63; BP 145/72
[2019-02-08 05:19] VITALS: BP 164/71
--- NOTE | 2019-02-08 11:01 | EKG ---
[place] [address] [place] [address] ELECTROCARDIOGRAM REPORT Name: ARNULFOCHARLYFLOR GO [facility] [id number] ������������������ Admission: 02/07/19 ������������������ Attend Phys: Discharge: 02/08/19 ������������������ Date of : 55 Report #: [id number] ����������������������������������������������������������������� [id number] THIS REPORT FOR: //name// [facility] ED Test Date: 2019-02-07 Test Time: 21:30:41 Pat Name: FLOR VAUGHN Department: Room: Gender: F Kaitara Taraka: Jenna Llamas : 1955 Requested By: Kisha Proctor Order Number: [id number] MD: Steve Menjivar Measurements Intervals [place] Rate: 78 P: 52 WA: 177 QRS: 50 QRSD: 82 T: 60 QT: 391 QTc: 446 Interpretive Statements Sinus rhythm Anteroseptal infarct, age indeterminate Compared to ECG 01/24/2019 11:18:31 Septal Q waves are more prominent Atrial premature complex(es) no longer present Electronically Signed On 02-08-2019 11:01:00 CDT by Steev Menjivar [email or web address] ��������������������������������������������� <ELECTRONICALLY SIGNED> ���������������������������������������� By: Steve Menjivar MD, [facility] ��������������������������������������������� 02/08/19 1101 2130 2130 Steve Menjivar MD, [facility] /EPI
== END 2019-02-08 05:20 ==
LOC: ER 20:54
PROVIDERS: Physician Assistant
DX: D64.9 Anemia, unspecified (principal); R53.1 Weakness; I10 Essential (primary) hypertension; E11.69 Type 2 diabetes mellitus with other specified complication; M86.9 Osteomyelitis, unspecified; E11.22 Type 2 diabetes mellitus with diabetic chronic kidney disease; I12.9 Hypertensive chronic kidney disease with stage 1 through stage 4 chronic kidney disease, or unspecified chronic kidney disease; N18.9 Chronic kidney disease, unspecified; Z87.891 Personal history of nicotine dependence

== ENCOUNTER → 2019-03-11 | Outpatient (CLI) | payer BC, OTHER | LOC: HYPER 06:52 | DX: E11.622 Type 2 diabetes mellitus with other skin ulcer (principal); L89.153 Pressure ulcer of sacral region, stage 3; L98.492 Non-pressure chronic ulcer of skin of other sites with fat layer exposed; L97.426 Non-pressure chronic ulcer of left heel and midfoot with bone involvement without evidence of necrosis; E11.51 Type 2 diabetes mellitus with diabetic peripheral angiopathy without gangrene; I10 Essential (primary) hypertension; Z87.891 Personal history of nicotine dependence ==

== ENCOUNTER → 2019-03-25 | Outpatient (CLI) | payer BC, OTHER | LOC: HYPER 06:32 | DX: E11.622 Type 2 diabetes mellitus with other skin ulcer (principal); L89.153 Pressure ulcer of sacral region, stage 3; L98.491 Non-pressure chronic ulcer of skin of other sites limited to breakdown of skin; L98.426 Non-pressure chronic ulcer of back with bone involvement without evidence of necrosis; E11.621 Type 2 diabetes mellitus with foot ulcer; L89.629 Pressure ulcer of left heel, unspecified stage; L97.421 Non-pressure chronic ulcer of left heel and midfoot limited to breakdown of skin; E11.51 Type 2 diabetes mellitus with diabetic peripheral angiopathy without gangrene; I10 Essential (primary) hypertension; Z87.891 Personal history of nicotine dependence ==

== ENCOUNTER → 2019-04-15 | Outpatient (CLI) | payer BC, OTHER | LOC: HYPER 04-14 08:31 | DX: E11.621 Type 2 diabetes mellitus with foot ulcer (principal); L89.623 Pressure ulcer of left heel, stage 3; L97.422 Non-pressure chronic ulcer of left heel and midfoot with fat layer exposed; L89.153 Pressure ulcer of sacral region, stage 3; L98.426 Non-pressure chronic ulcer of back with bone involvement without evidence of necrosis; E11.51 Type 2 diabetes mellitus with diabetic peripheral angiopathy without gangrene; I10 Essential (primary) hypertension; Z87.891 Personal history of nicotine dependence ==

== ENCOUNTER → 2019-05-06 | Outpatient (CLI) | payer BC, OTHER | LOC: HYPER 07:09 | DX: E11.621 Type 2 diabetes mellitus with foot ulcer (principal); L89.623 Pressure ulcer of left heel, stage 3; L97.421 Non-pressure chronic ulcer of left heel and midfoot limited to breakdown of skin; E11.622 Type 2 diabetes mellitus with other skin ulcer; L89.153 Pressure ulcer of sacral region, stage 3; L98.426 Non-pressure chronic ulcer of back with bone involvement without evidence of necrosis; E11.51 Type 2 diabetes mellitus with diabetic peripheral angiopathy without gangrene; I10 Essential (primary) hypertension; Z87.891 Personal history of nicotine dependence ==

== ENCOUNTER → 2019-05-27 | Outpatient (CLI) | payer BC, OTHER | LOC: HYPER 06:37 | DX: E11.621 Type 2 diabetes mellitus with foot ulcer (principal); L89.623 Pressure ulcer of left heel, stage 3; L97.421 Non-pressure chronic ulcer of left heel and midfoot limited to breakdown of skin; L89.153 Pressure ulcer of sacral region, stage 3; L98.498 Non-pressure chronic ulcer of skin of other sites with other specified severity; E11.622 Type 2 diabetes mellitus with other skin ulcer; L98.426 Non-pressure chronic ulcer of back with bone involvement without evidence of necrosis; L02.31 Cutaneous abscess of buttock; E11.51 Type 2 diabetes mellitus with diabetic peripheral angiopathy without gangrene; I10 Essential (primary) hypertension; Z87.891 Personal history of nicotine dependence ==

== ENCOUNTER → 2019-06-12 | Outpatient (CLI) | payer BC, OTHER | LOC: HYPER 12:15 | DX: L02.31 Cutaneous abscess of buttock (principal); E11.51 Type 2 diabetes mellitus with diabetic peripheral angiopathy without gangrene; I10 Essential (primary) hypertension; Z87.891 Personal history of nicotine dependence ==

== ENCOUNTER → 2019-07-07 | Outpatient (CLI) | payer BC, OTHER | LOC: HYPER 07:24 | DX: E11.622 Type 2 diabetes mellitus with other skin ulcer (principal); L98.411 Non-pressure chronic ulcer of buttock limited to breakdown of skin; L02.31 Cutaneous abscess of buttock; E11.51 Type 2 diabetes mellitus with diabetic peripheral angiopathy without gangrene; I10 Essential (primary) hypertension; Z87.891 Personal history of nicotine dependence ==

== ENCOUNTER → 2019-08-04 | Outpatient (CLI) | payer BC, OTHER | LOC: HYPER 16:00 | DX: E11.622 Type 2 diabetes mellitus with other skin ulcer (principal); L98.411 Non-pressure chronic ulcer of buttock limited to breakdown of skin; L02.31 Cutaneous abscess of buttock; E11.51 Type 2 diabetes mellitus with diabetic peripheral angiopathy without gangrene; I10 Essential (primary) hypertension; Z87.891 Personal history of nicotine dependence ==

== ENCOUNTER → 2021-07-14 | Outpatient (CLI) | payer OTHER | LOC: ULTRA 15:14 | PROVIDERS: ATTEND Family Medicine | DX: R60.9 Edema, unspecified (principal); M79.605 Pain in left leg ==